=== PATIENT | female | born 1980 | race Hispanic/Latino ===

== ENCOUNTER 2024-03-24 08:55 | Inpatient (IN) | payer SELFPAY ==
[~2024-03-24] VITALS: Ht 165.1 cm; Wt 117.9 kg
[2024-03-24 10:03] LABS: BASOPHILS # (AUTO) 0.02 K/uL (0.00-0.20); BASOPHILS % (AUTO) 0.4 % (0.0-5.0); EOSINOPHILS % (AUTO) 2.1 % (0.0-8.0); IMMATURE GRANULOCYTE ABSOLUTE 0.02 K/uL (0-1); LYMPHOCYTES # (AUTO) 1.1 K/uL (1.0-4.8); MEAN CORPUSCULAR HEMOGLOBIN 18.6 pg (27.0-33.0); MEAN CORPUSCULAR HGB CONC 26.8 g/dL (32.0-36.0); MEAN CORPUSCULAR VOLUME 69.4 fL (79-99); MONOCYTES # (AUTO) 0.3 K/uL (0.1-1.0); MONOCYTES % (AUTO) 5.8 % (3.0-13.0); NEUTROPHILS # (AUTO) 3.3 K/uL (1.8-7.7); NEUTROPHILS % (AUTO) 68.3 % (40.0-77.0); PLATELET COUNT (AUTO) 287 K/uL (130-400); RED BLOOD CELL COUNT(AUTO) 3.01 MIL/uL (4.00-5.50); RED CELL DISTRIBUTION WIDTH 17.1 % (11.0-15.5); WHITE BLOOD COUNT (AUTO) 4.9 K/uL (4.8-10.8)
[2024-03-24 10:08] LABS: POTASSIUM 3.2 mmol/L (3.5-5.1)
[2024-03-24 10:11] LABS: HEMATOCRIT 20.9 % (36-48)
[2024-03-24 10:34] LABS: APPEARANCE,URINE CLOUDY (CLEAR); BILIRUBIN,URINE SMALL mg/dL (NEGATIVE); COLOR,URINE RED (YELLOW); GLUCOSE, URINE (UA) NEGATIVE (NEGATIVE); KETONES,URINE 15 mg/dL (NEGATIVE); LEUKOCYTE ESTERASE ,URINE TRACE Leu/uL (NEGATIVE); NITRATE,URINE POSITIVE (NEGATIVE); OCCULT BLOOD,URINE LARGE (NEGATIVE); PH,URINE 5.5 (5.0-8.0); PROTEIN,URINE 100 mg/dL (NEGATIVE)
[2024-03-24 10:46] LABS: INR 0.97 (0.85-1.15); PROTHROMBIN TIME 10.5 SEC (9.6-11.6)
[2024-03-24 10:47] LABS: PARTIAL THROMBOPLASTIN TIME 20.9 SEC (26.3-35.5)
[2024-03-24 10:53] LABS: HCG,QUALITATIVE URINE NEGATIVE (NEGATIVE)
[2024-03-24] MEDS: 0.9%NACL 1000ML 1,000 ML IV ONE (10:55)
[2024-03-24] MEDS: PoTASSium BIcarbonate/CIT AC 25 MEQ TABLET.EFF PO ONE (10:55)
[2024-03-24 11:09] LABS: BACTERIA,URINE Many /HPF (None Seen); RBC,URINE TNTC /HPF (0-1)
[2024-03-24 11:18] LABS: AMORPHOUS SEDIMENT,UR Few /LPF (None Seen)
[2024-03-24] MEDS ORDERED: acetaMINOPHEN 500 MG TABLET PO PRN (12:00)
[2024-03-24] MEDS ORDERED: PoTASSium chl 10% ELIXIR 20MEQ 20 MEQ/15 ML UDCUP PO PRN (12:00)
[2024-03-24] MEDS ORDERED: PoTASSium chloRIDE 20MEQ/100ML 100 ML IV PRN (12:00)
[2024-03-24 12:16] LABS: HEMOGLOBIN A1C 5.6 % (4.0-6.0)
[2024-03-24] MEDS: cefTRIAXone 1G VIAL IVPB SCH (12:41)
[2024-03-24] MEDS: 0.9%NACL 1000ML 1,000 ML IV SCH (12:41)
[2024-03-24 12:44] LABS: % IRON SATURATION 1.9 % (22-44)
[2024-03-24 13:25] LABS: THYROID STIMULATING HORMONE 2.06 uIU/mL (0.36-3.74)
[2024-03-24 15:31] LABS: SARS-CoV-2, RNA, NAAT NEGATIVE SARS CoV-2 (NEGATIVE)
[2024-03-24 15:40] LABS: INFLUENZA TYPE A Negative For Type A (NEGATIVE); INFLUENZA TYPE B Negative For Type B (NEGATIVE)
[2024-03-24 16:30] VITALS: BP 137/68; PULSE 72; RESP 18; TEMP 98.3
[2024-03-24 16:35] VITALS: BP 137/61; PULSE 70; RESP 18; TEMP 98.3
[2024-03-24 16:45] VITALS: BP 133/54; PULSE 74; RESP 18; TEMP 98.2
[2024-03-24 17:50] VITALS: BP 134/79; PULSE 77; RESP 20; TEMP 98.5
[2024-03-24 18:26] VITALS: BP 135/86; PULSE 73; RESP 18; TEMP 98.3
[2024-03-24] MEDS: FAMOTIDINE 20MG VIAL IV SCH (19:52)
[2024-03-24 20:00] VITALS: BP 134/84; PULSE 75; RESP 18; TEMP 98.3; O2SAT 100
[2024-03-24 21:35] LABS: RETICULOCYTE % (AUTO) 1.31 % (0.42-2.23)
[2024-03-25] VITALS (12 sets, daily range): BP systolic 95–140; BP diastolic 49–77; PULSE 63–74; RESP 18–20; TEMP 98–98.9; O2SAT 99–100
[2024-03-25 07:20] LABS: CREATININE 0.8 mg/dL (0.5-1.0); POTASSIUM 3.6 mmol/L (3.5-5.1)
[2024-03-25 07:22] LABS: BASOPHILS # (AUTO) 0.02 K/uL (0.00-0.20); BASOPHILS % (AUTO) 0.4 % (0.0-5.0); EOSINOPHILS # (AUTO) 0.19 K/uL (0.00-0.70); EOSINOPHILS % (AUTO) 4.2 % (0.0-8.0); HEMATOCRIT 22.5 % (36-48); IMMATURE GRANULOCYTE ABSOLUTE 0.01 K/uL (0-1); LYMPHOCYTES # (AUTO) 1.6 K/uL (1.0-4.8); LYMPHOCYTES % (AUTO) 34.9 % (21.0-51.0); MEAN CORPUSCULAR HEMOGLOBIN 21.4 pg (27.0-33.0); MEAN CORPUSCULAR HGB CONC 29.3 g/dL (32.0-36.0); MEAN CORPUSCULAR VOLUME 73.1 fL (79-99); MONOCYTES # (AUTO) 0.3 K/uL (0.1-1.0); MONOCYTES % (AUTO) 7.3 % (3.0-13.0); NEUTROPHILS # (AUTO) 2.4 K/uL (1.8-7.7); PLATELET COUNT (AUTO) 228 K/uL (130-400); RED BLOOD CELL COUNT(AUTO) 3.08 MIL/uL (4.00-5.50); RED CELL DISTRIBUTION WIDTH 18.9 % (11.0-15.5); WHITE BLOOD COUNT (AUTO) 4.6 K/uL (4.8-10.8)
[2024-03-25] MEDS ORDERED: PoTASSium chloRIDE 20MEQ/100ML 100 ML IV SCH (08:30)
[2024-03-25] MEDS: PoTASSium chloRIDE 20MEQ ER 20 MEQ ERTAB PO PRN (12:11)
[2024-03-25] MEDS: FERROUS SULFATE 325 MG TABLET.DR PO SCH (12:12)
[2024-03-26] VITALS: BP 134/66; PULSE 66; RESP 16; TEMP 98.2
[2024-03-26 03:59] VITALS: BP 122/50; PULSE 59; RESP 18; TEMP 98.1
[2024-03-26 05:31] LABS: BASOPHILS # (AUTO) 0.03 K/uL (0.00-0.20); BASOPHILS % (AUTO) 0.5 % (0.0-5.0); EOSINOPHILS # (AUTO) 0.31 K/uL (0.00-0.70); EOSINOPHILS % (AUTO) 5.6 % (0.0-8.0); HEMATOCRIT 27.1 % (36-48); IMMATURE GRANULOCYTE ABSOLUTE 0.02 K/uL (0-1); LYMPHOCYTES # (AUTO) 1.8 K/uL (1.0-4.8); LYMPHOCYTES % (AUTO) 32.6 % (21.0-51.0); MEAN CORPUSCULAR HEMOGLOBIN 22.6 pg (27.0-33.0); MEAN CORPUSCULAR HGB CONC 29.9 g/dL (32.0-36.0); MEAN CORPUSCULAR VOLUME 75.5 fL (79-99); MONOCYTES # (AUTO) 0.4 K/uL (0.1-1.0); MONOCYTES % (AUTO) 7.2 % (3.0-13.0); NEUTROPHILS % (AUTO) 53.7 % (40.0-77.0); PLATELET COUNT (AUTO) 244 K/uL (130-400); RED BLOOD CELL COUNT(AUTO) 3.59 MIL/uL (4.00-5.50); RED CELL DISTRIBUTION WIDTH 20.6 % (11.0-15.5); WHITE BLOOD COUNT (AUTO) 5.6 K/uL (4.8-10.8)
[2024-03-26 05:56] LABS: ALBUMIN 2.9 g/dL (3.5-5.0); BILIRUBIN,TOTAL 0.3 mg/dL (0.2-1.0); CREATININE 0.8 mg/dL (0.5-1.0); POTASSIUM 3.6 mmol/L (3.5-5.1); TOTAL PROTEIN, SERUM 6.3 g/dL (6.0-8.3)
[2024-03-26 07:20] VITALS: BP 151/91; PULSE 60; RESP 20; TEMP 98.6
[2024-03-26 08:00] VITALS: O2SAT 99
[2024-03-26] MEDS ORDERED: FERR324T4 PO (08:45)
[2024-03-26] MEDS ORDERED: MEDR5TAB5 PO (08:47)
[2024-03-26 09:56] LABS: HEMATOCRIT 28.3 % (36-48)
[2024-03-26 11:31] VITALS: BP 149/85; PULSE 65; RESP 20; TEMP 98.6
== END 2024-03-26 12:38 | disposition home or self-care (01) | DRG 812 ==
LOC: EDH 08:55 → EDHIP 11:00 → 3BH 17:34
PROVIDERS: ADMIT Internal Medicine; ATTEND Internal Medicine
PROC: 30233N1 Transfusion of Nonautologous Red Blood Cells into Peripheral Vein, Percutaneous Approach (ICD-10-PCS; principal; 2024-03-24)
DX: D50.0 Iron deficiency anemia secondary to blood loss (chronic) (principal); Z68.41 Body mass index [BMI] 40.0-44.9, adult; Z20.822 Contact with and (suspected) exposure to COVID-19; N92.0 Excessive and frequent menstruation with regular cycle; E66.9 Obesity, unspecified; E87.6 Hypokalemia; I10 Essential (primary) hypertension; R93.89 Abnormal findings on diagnostic imaging of other specified body structures; J44.9 Chronic obstructive pulmonary disease, unspecified
CPT/HCPCS: 36415; 36430; 71045; 76856; 80048; 80053; 81001; 81025; 82607; 82728; 83036; 83735; 84145; 84443; 84702; 85014; 85018; 85025; 85610; 85730; 86140; 86850; 86900; 86901; 86923; 87086; 87635; 87804; 99291; G0378; J0696; J3490; J7030; P9016